=== PATIENT | female | born 1955 | race African-American/Black ===

== ENCOUNTER → 2017-11-21 | Outpatient (CLI) | payer OTHER ==
[~2017-11-21] MED LIST: ADVIL200 MG PO; BIOTIN5000 MCG PO; CALCIUM CITRAT950 MG; CALTRATE 600600 MG PO; CENTRUM SILVER1 CTB PO; DIOVAN/HCT 12.51 TAB PO; IRON325 M1 PO; OMEGA-31 SGL PO; RT ADVAIR 228 DISKUS IH; VENTOLIN0.09 MG IH; VITAMIN C500 MG PO; WOMEN'S DAILY1 TAB PO; ZYRTEC 10MG10 MG PO; [UNRECOGNIZED DRUG - OTHER] PO
== END ==
LOC: COL.PUL 09:25
DX: Z02.71 Encounter for disability determination (principal)

== ENCOUNTER 2017-11-22 06:43 | Day surgery (SDC) | payer MEDICAID ==
[~2017-11-22] VITALS: Ht 160 cm; Wt 62.7 kg
[2017-11-22] VITALS (10 sets, daily range): BP systolic 111–136; BP diastolic 65–88; PULSE 69–95; TEMP 97.5–98.1
[~2017-11-22 06:43] MED LIST changes: -ADVIL200 MG PO; -BIOTIN5000 MCG PO; -CALCIUM CITRAT950 MG; -DIOVAN/HCT 12.51 TAB PO; -OMEGA-31 SGL PO; -RT ADVAIR 228 DISKUS IH; -VENTOLIN0.09 MG IH; -VITAMIN C500 MG PO; -WOMEN'S DAILY1 TAB PO; -ZYRTEC 10MG10 MG PO
[2017-11-22 08:12] LABS: HEMATOCRIT 40.6 % (37.0-47.0); HEMOGLOBIN 13.6 g/dl (12.5-16.0); MEAN CELL VOLUME 88 fl (80.0-100.0); MEAN CORPUSCULAR HEMOGLOBIN 29 pg (27.0-31.0); MEAN CORPUSCULAR HGB CONC 34 g/dl (33.0-37.0); MEAN PLATELET VOLUME 9.3 fl (7.4-10.4); PLATELET COUNT 253 K/mm3 (130-400); RED BLOOD COUNT 4.62 M/mm3 (4.10-5.30); REDCELL DISTRIBUTION WIDTH-CV 13.3 % (11.5-14.5)
[2017-11-22 08:17] LABS: CALCIUM 8.8 mg/dL (8.4-10.2); CREATININE, serum 0.95 mg/dL (0.52-1.25)
[2017-11-22 08:18] LABS: PROTHROMBIN TIME 10.9 SECONDS (9.7-12.8)
[2017-11-22] MEDS ORDERED: RT ADVAIR 228 DISKUS IH (08:20)
[2017-11-22] MEDS ORDERED: ADVIL200 MG PO (08:21)
[2017-11-22] MEDS ORDERED: DIOVAN/HCT 12.51 TAB PO (08:22)
[2017-11-22] MEDS ORDERED: ZYRTEC 10MG10 MG PO (08:23)
[2017-11-22] MEDS ORDERED: VENTOLIN0.09 MG IH ×2 (08:23)
[2017-11-22] MEDS ORDERED: BIOTIN5000 MCG PO (08:25)
[2017-11-22] MEDS ORDERED: CALCIUM CITRAT950 MG (08:25)
[2017-11-22] MEDS ORDERED: OMEGA-31 SGL PO (08:27)
[2017-11-22] MEDS ORDERED: WOMEN'S DAILY1 TAB PO (08:28)
[2017-11-22] MEDS ORDERED: VITAMIN C500 MG PO (08:28)
== END 2017-11-22 15:00 | disposition home or self-care (01) ==
LOC: COL.CAR 06:43
PROVIDERS: Internal Medicine Cardiovascular Disease
DX: I08.1 Rheumatic disorders of both mitral and tricuspid valves (principal); E11.9 Type 2 diabetes mellitus without complications; E78.5 Hyperlipidemia, unspecified; I11.0 Hypertensive heart disease with heart failure; I50.9 Heart failure, unspecified; J44.9 Chronic obstructive pulmonary disease, unspecified
CPT/HCPCS: C1760; C1769; C1894; J1644; J2250; J3010; Q9967

== ENCOUNTER → 2018-01-05 | Outpatient (CLI) | payer MEDICAID ==
[~2018-01-05] MED LIST changes: +ADVIL200 MG PO; +BIOTIN5000 MCG PO; +CALCIUM CITRAT950 MG; +DIOVAN/HCT 12.51 TAB PO; +OMEGA-31 SGL PO; +RT ADVAIR 228 DISKUS IH; +VENTOLIN0.09 MG IH; +VITAMIN C500 MG PO; +WOMEN'S DAILY1 TAB PO; +ZYRTEC 10MG10 MG PO
== END ==
LOC: COL.RAD 11:00
DX: J43.9 Emphysema, unspecified (principal); J47.9 Bronchiectasis, uncomplicated; J98.4 Other disorders of lung; I51.7 Cardiomegaly; I34.0 Nonrheumatic mitral (valve) insufficiency
CPT/HCPCS: Q9967

== ENCOUNTER 2018-03-06 09:11 | Day surgery (SDC) | payer MEDICAID ==
[~2018-03-06] VITALS: Ht 162.6 cm; Wt 69.4 kg
[2018-03-06 09:33] VITALS: BP 143/84; PULSE 87; TEMP 98
[2018-03-06] MEDS ORDERED: MYRBETR50MG PO (09:33)
[2018-03-06] MEDS ORDERED: BREO IH (09:33)
[2018-03-06 11:15] VITALS: BP 114/68; PULSE 82; TEMP 97.7
[2018-03-06 11:30] VITALS: BP 122/75; PULSE 79
[2018-03-06 11:45] VITALS: BP 114/68; PULSE 75
== END 2018-03-06 12:10 | disposition home or self-care (01) ==
LOC: SDCO 09:11
DX: K62.5 Hemorrhage of anus and rectum (principal); Z80.0 Family history of malignant neoplasm of digestive organs; K63.89 Other specified diseases of intestine; Z93.3 Colostomy status; J44.9 Chronic obstructive pulmonary disease, unspecified
CPT/HCPCS: J2250; J3010; J7030

== ENCOUNTER 2020-02-06 09:05 | Inpatient (IN) | payer MEDICAID ==
[2020-02-06] VITALS (11 sets, daily range): BP systolic 88–129; BP diastolic 50–82; PULSE 72–88; TEMP 97.8–98.3
[~2020-02-06] VITALS: Ht 162.6 cm; Wt 53.0 kg
[~2020-02-06 09:05] MED LIST changes: +BREO IH; +MYRBETR50MG PO
[2020-02-06] MEDS ORDERED: ASPIRIN 81M81 MG/TA2 PO (10:23)
[2020-02-06] MEDS ORDERED: PRILOSEC 20MG20 MG PO (10:25)
[2020-02-06] MEDS ORDERED: TYLENOL 500MG500 MG PO (10:28)
--- NOTE | 2020-02-06 10:44 | NUR ---
PAtient arrived to the floor at this time. She is alert, oriented and stable. Vitals look good. Only complaint is pain at rate of 4, increasing with movement, located in her rib cage descibed as pressure. Admission assessment has been completed. IV is in pts right hand, CD&I. Medications were reviewed verbally as patient did not have a list. Assessment unremarkable. Will continue to monitor. Call light is in reach.
[2020-02-06 12:12] LABS: BASO # 0.1 (0.0-0.2); BASO % 0.9 % (0.0-2.0); CALCIUM 10.3 mg/dL (8.4-10.2); CREATININE, serum 1.34 (0.52-1.25); EOS % 0.5 % (0-4.0); GRAN # 3.7 (1.4-6.5); GRAN % 63.1 % (42.2-75.2); HEMATOCRIT 40.9 % (37.0-47.0); HEMOGLOBIN 13.5 g/dl (12.5-16.0); LYMPH # 1.5 (1.2-3.4); LYMPH % 26.1 % (20.0-51.0); MAGNESIUM 2.2 mg/dL (1.6-2.3); MEAN CELL VOLUME 87 fl (80.0-100.0); MEAN CORPUSCULAR HEMOGLOBIN 29 pg (27.0-31.0); MEAN CORPUSCULAR HGB CONC 33 g/dl (33.0-37.0); MEAN PLATELET VOLUME 10.6 fl (7.4-10.4); MONO # 0.5 (0.1-0.6); MONO % 9.2 % (1.7-9.3); PLATELET COUNT 380 K/mm3 (130-400); POTASSIUM 4.6 mmol/L (3.4-5.0); RED BLOOD COUNT 4.69 M/mm3 (4.10-5.30); REDCELL DISTRIBUTION WIDTH-CV 14.6 % (11.5-14.5)
[2020-02-06 12:26] LABS: TROPONIN-I 0.086 ng/mL (0.000-0.035)
[2020-02-06 12:48] LABS: PARTIAL THROMBOPLASTIN TIME 43.9 SECONDS (26.0-37.0)
--- NOTE | 2020-02-06 15:54 | NUR ---
SEE MERGE DOCUMENTATION FOR MEDICATION ADMINISTRATION TIMES AND INTRA/POST PROCEDURE SEDATION ASSESSMENTS. RIGHT HAND BARBEAU TEST POSITIVE.
--- NOTE | 2020-02-06 16:50 | NUR ---
patient got back to room 308 from [facility] at this time, she is alert/oriented, vital signs stable, right radial puncture site is soft and no signs of bleeding or hematoma, comprression band has 15cc air / will begin to deflate around 1830, dneies needs at this time and we [place] [facility] to monitor
--- NOTE | 2020-02-06 18:04 | NUR ---
patient continues to do well, no bleeding or oozing at right radial puncutre site, cap refill is good to finger, vital signs stable, she is tolerating PO intake well
--- NOTE | 2020-02-06 18:53 | NUR ---
removed 4 cc of air from radial band, site started oozing a little and 4cc of air was replaced
--- NOTE | 2020-02-06 20:35 | NUR ---
Patient assessed at this time. Alert and oriented x 4, and able to make needs known. Denies having pain and discomfort at this time. Peripheral IV to right hand, fluids running per orders. Right radial heart cath site-band taken off and bandaid applied. No active bleeding or hematomoa. Arm board on for protection for site overnight. Denies SOB and dyspnea. LS CTA. Respirations even and unlabored. HRR. Telemetry in place: sinus. Capillary refill less than 3 seconds. Non-tenting skin turgor. BSAx4. Abdomen soft and non-tender. No edema. Voices no questions, needs, or concerns at this time. Resting in bed with call light within reach.
[2020-02-07 02:47] VITALS: BP 99/54; PULSE 84; TEMP 98.3
--- NOTE | 2020-02-07 05:20 | NUR ---
Patient has been resting in bed with eyes closed. Denies having pain and discomfort. IV fluids continue per orders. BPs have been low this shift. Call light is within reach.
[2020-02-07 07:13] VITALS: BP 109/65; PULSE 84; TEMP 97.8
[2020-02-07 07:27] LABS: CALCIUM 9.4 mg/dL (8.4-10.2); CREATININE, serum 1.44 (0.52-1.25); POTASSIUM 4.5 mmol/L (3.4-5.0)
--- NOTE | 2020-02-07 08:32 | NUR ---
Assessment complete. Patient sitting up in recliner for breakfast at this time. Echo just completed. Patient requested pain medication, PRN tylenol provided. Radial site looks good, CD&I, bandaid in place. Pt states radial site is minimally sore with movement but assumes it is because of her IV. IV site is CD&I, IVF infusing at this time. No other needs were expressed at this time. Call light is in reach.
--- NOTE | 2020-02-07 10:32 | NUR ---
Initial visit; Patient thanked Pre Press Operator for looking in on her and keeping her in Pre Press Operator's prayers.
[2020-02-07 11:55] VITALS: BP 103/72; PULSE 78; TEMP 97.9
--- NOTE | 2020-02-07 16:07 | NUR ---
SW met with the patient to complete initial intake. The patient lives in [place] with her sister, Monse Campos #[id number]. The patient is independent and denies DME use. The patient's PCP is Dr. Martinez and patient recieves medications from [facility] in . The patient does not have advanced directives in the EMR. She was not interested in DPOA-HC form. The patient's siblings are Asim Brownlee from [facility], Ciaran Hawkins from [place], Montserrat Davis from [place], and Fabienne Torrie from [place]. Monse has all the phone numbers. The patient plans to return home at discharge. There are no additional needs.
[2020-02-07 17:09] VITALS: BP 129/67; PULSE 81; TEMP 98.2
--- NOTE | 2020-02-07 17:21 | NUR ---
Patient had an uneventful day. PRN tylenol provided as needed. Patient remains independent in the room with no issues. She is aware of her POC and understands the need for the newly admnistered medications. Radial site is still CD&I. IV site was switched from left hand to right AC as other infitrated. No issues since moving it. Call light is in reach.
[2020-02-07 20:00] VITALS: BP 109/58; PULSE 74; TEMP 98
--- NOTE | 2020-02-07 20:00 | NUR ---
Patient assessed at this time. Alert and oriented x 4, and able to make needs known. Denies having pain and discomfort at this time. Did have headache earlier, and was given PRN APAP as requested for pain. Peripheral IV to left AC with pain and redness. Taken out and new 22 G INT started to left forearm. Denies having SOB and dyspnea. LS CTA. Respirations even and unlabored. HRR. Tele: sinus. Capillary refill less than 3 seconds. Non-tenting skin turgor. BSAx4. Abdomen soft and non-tender. No edema. Voices no questions, needs, or concerns at this time. Resting in bed with call light within reach.
[2020-02-08] VITALS (7 sets, daily range): BP systolic 102–130; BP diastolic 57–78; PULSE 76–82; TEMP 97.5–98.1
--- NOTE | 2020-02-08 05:47 | NUR ---
Patient has been resting in bed this shift. Received APAP once this shift for headache. No further complaints this shift. Voices no questions, needs, or concerns at this time. Call light is within reach.
[2020-02-08 06:29] LABS: MEAN CELL VOLUME 87 fl (80.0-100.0); MEAN CORPUSCULAR HGB CONC 33 g/dl (33.0-37.0); MEAN PLATELET VOLUME 10.8 fl (7.4-10.4); PLATELET COUNT 339 K/mm3 (130-400); RED BLOOD COUNT 4.01 M/mm3 (4.10-5.30); REDCELL DISTRIBUTION WIDTH-CV 14.4 % (11.5-14.5)
[2020-02-08 06:43] LABS: HEMOGLOBIN 11.5 g/dl (12.5-16.0); MEAN CORPUSCULAR HEMOGLOBIN 29 pg (27.0-31.0)
--- NOTE | 2020-02-08 19:27 | NUR ---
patient complained of fluttering abdomen when receiving report this am. jeremy Wynne nurse called telemetry to confirm rhythm was sinus on tele. patient ambulated around the room, she later said bowel settled after passing flatulence. patient alert and oriented. complained of mild headache, took tylenol for pain. wbc 4.7, Na 132. Patient had an uneventful day. scored zero on ciwa protocol all day. patient ambulate independently in the room.
--- NOTE | 2020-02-08 19:50 | NUR ---
Patient assessed at this time. Alert and oriented x 4, and able to make needs known. Denies having pain and discomfort at this time. Had a headache earlier and was given PRN APAP which was effective. New order for Claritin as requested by patient, and given. Peripheral INT to left forearm is patent, and without redness, warmth, pain, and swelling. Denies having SOB and dypsnea. LS CTA. Respirations even and unlabored. HRR. Telemetry in place: sinus. Capillary refill less than 3 seconds. Non-tenting skin turgor. BSAx4. Abdomen soft, and non-tender. Reported that she did have an increase in amount of stool since this morning's upset stomach, but seems to be doing much better now. Independent with colostomy care. No edema. Voices no questions, needs, or concerns at this time. Resting in bed with call light within reach.
[2020-02-09 04:00] VITALS: BP 122/67; PULSE 92; TEMP 98.2
--- NOTE | 2020-02-09 05:59 | NUR ---
Patient has voiced no questions, needs, or concerns this shift. Stated that her abdomen is no longer feeling bloated this morning, and reports emptying colostomy bag 3 times during the night. Given new colosty bag and wafer as requested for later if needed. Voices no further questions, needs, or concerns at this time. Resting in bed with call light within reach.
[2020-02-09 07:10] LABS: BASO % 0.3 % (0.0-2.0); EOS # 0.1 (0.0-0.7); EOS % 1.1 % (0-4.0); GRAN # 7.5 (1.4-6.5); GRAN % 79.4 % (42.2-75.2); HEMATOCRIT 38.4 % (37.0-47.0); HEMOGLOBIN 12.7 g/dl (12.5-16.0); LYMPH # 1.1 (1.2-3.4); LYMPH % 11.3 % (20.0-51.0); MEAN CELL VOLUME 88 fl (80.0-100.0); MEAN CORPUSCULAR HEMOGLOBIN 29 pg (27.0-31.0); MEAN CORPUSCULAR HGB CONC 33 g/dl (33.0-37.0); MEAN PLATELET VOLUME 11.1 fl (7.4-10.4); MONO # 0.7 (0.1-0.6); MONO % 7.6 % (1.7-9.3); PLATELET COUNT 362 K/mm3 (130-400); RED BLOOD COUNT 4.36 M/mm3 (4.10-5.30); REDCELL DISTRIBUTION WIDTH-CV 14.3 % (11.5-14.5)
[2020-02-09 07:21] VITALS: BP 118/67; PULSE 84; TEMP 98.1
[2020-02-09 07:23] LABS: CALCIUM 9.7 mg/dL (8.4-10.2); CREATININE, serum 1.33 (0.52-1.25); POTASSIUM 4.2 mmol/L (3.4-5.0)
[2020-02-09 08:12] LABS: HIV 1/2 Antibodies Non-Reactive; HIV-1p24 Antigen Non-Reactive
--- NOTE | 2020-02-09 08:56 | NUR ---
MORNING MEDS GIVEN. PT UP AD [place]. SITTING IN RECLINER. DENIES ANY NEEDS. IV FLUSHED
[2020-02-09] MEDS ORDERED: COREG 3.123.125 MG/T PO ×3 (10:55→11:06)
[2020-02-09] MEDS ORDERED: INDOCIN 25MG CA25 MG PO (10:57)
[2020-02-09] MEDS ORDERED: COLCRYS0.6 MG PO (10:59)
[2020-02-09 11:29] VITALS: BP 122/65; PULSE 87; TEMP 98
--- NOTE | 2020-02-09 12:24 | NUR ---
DISCHARGE INSTRUCTIONS REVIEWED. PHARMACY CALLED AND CLARFICIATION FOR COREG 6.25MG BID MADE PER ACTIVE DISCHARGE LIST. ALL QUESTIONS ANSWERED. SISTER WILL CIGAR PACKER AND SHADER PT IN 1 HOUR.
--- NOTE | 2020-02-09 14:26 | NUR ---
PT DISCHARGED @ 1315 AND PICKED UP BY SISTER.
--- NOTE | 2020-02-10 16:08 | NUR ---
Pt went to [facility] in [place] and was denied her Colchicine medication. Their Phone is [phone]. I called [facility] OUTPT medications at [phone]-they will fax a form to our fax to be filled out and returned marked "Urgent". I called Delmy at home and updated her on the process. She voiced understanding.
--- NOTE | 2020-02-10 16:39 | NUR ---
Received fax from [facility]-completed form and Faxed to [phone]. Called Delmy to update her on status of medication.
== END 2020-02-09 13:15 | disposition home or self-care (01) | DRG 280 ==
LOC: MEDICAL 09:05
PROVIDERS: Internal Medicine Pulmonary Disease; Physician Assistant; ADMIT Hospitalist
PROC: 4A023N7 Measurement of Cardiac Sampling and Pressure, Left Heart, Percutaneous Approach (ICD-10-PCS; principal; 2020-02-06)
PROC: B2111ZZ Fluoroscopy of Multiple Coronary Arteries using Low Osmolar Contrast (ICD-10-PCS; 2020-02-06)
DX: I31.9 Disease of pericardium, unspecified (principal); I21.4 Non-ST elevation (NSTEMI) myocardial infarction; J96.01 Acute respiratory failure with hypoxia; N39.0 Urinary tract infection, site not specified; E87.1 Hypo-osmolality and hyponatremia; E87.3 Alkalosis; I50.22 Chronic systolic (congestive) heart failure; I42.9 Cardiomyopathy, unspecified; I13.0 Hypertensive heart and chronic kidney disease with heart failure and stage 1 through stage 4 chronic kidney disease, or unspecified chronic kidney disease; I51.4 Myocarditis, unspecified; N18.31 Chronic kidney disease, stage 3a; J44.9 Chronic obstructive pulmonary disease, unspecified; I27.20 Pulmonary hypertension, unspecified; I44.0 Atrioventricular block, first degree; E78.5 Hyperlipidemia, unspecified; K21.9 Gastro-esophageal reflux disease without esophagitis; Z20.828 Contact with and (suspected) exposure to other viral communicable diseases; Z79.82 Long term (current) use of aspirin; Z79.1 Long term (current) use of non-steroidal anti-inflammatories (NSAID); Z87.891 Personal history of nicotine dependence
CPT/HCPCS: 99222-AI; 99232-AI; 99233-AI; 99239; J0696; J1644; J2250; J3010; Q9967

== ENCOUNTER → 2020-05-06 | Outpatient (CLI) | payer MEDICAID ==
[~2020-05-06] VITALS: Ht 162.7 cm; Wt 64.3 kg
[~2020-05-06] MED LIST changes: +ASPIRIN 81M81 MG/TA2 PO; +CARDIZEM120 MG PO; +CATAPRES 0.1MG0.1 MG PO; +COLCRYS0.6 MG PO; +COREG 3.123.125 MG/T PO; +COREG12.5 MG PO; +INDOCIN 25MG CA25 MG PO; +K-TAB10 PO; +PRILOSEC 20MG20 MG PO; +TYLENOL 500MG500 MG PO
[2020-05-06 09:00] VITALS: BP 136/81; PULSE 67; TEMP 98.5
[2020-05-06 11:04] LABS: INR 1.1 (0.8-3.0); PROTHROMBIN TIME 12.1 SECONDS (9.7-12.8)
[2020-05-06 11:15] VITALS: BP 127/66; PULSE 71
--- NOTE | 2020-05-06 11:15 | NUR ---
REPORT FROM TYRONE CHAKRABORTY AFTER [place], PT SITS UP IN BED, ASWAKE AND ALERT, SIPS ON WATER, NO C/O
[2020-05-06 11:30] VITALS: BP 113/66; PULSE 66
[2020-05-06 11:45] VITALS: BP 118/66; PULSE 66
--- NOTE | 2020-05-06 11:45 | NUR ---
PT UP IN ROOM, GAIT STEADY. NO C/O
[2020-05-06 12:00] VITALS: BP 124/67; PULSE 71
[2020-05-06 12:34] LABS: CREATININE, serum 1.11 (0.52-1.25)
[2020-05-06 12:35] LABS: CALCIUM 9.9 mg/dL (8.4-10.2); POTASSIUM 4.3 mmol/L (3.4-5.0)
--- NOTE | 2020-05-06 12:45 | NUR ---
REVIEWED DISCHARGE INST. WITH PT ON MODERATE SEDATION AND ACTIVITY, LEFT MESSAGE AT OFFICE TO CALL PT ON FOLLOWUP IN 2 WEEKS, TO CALL PT AT HOME. IV D'CD INTACT BY EUNICE CHAKRABORTY. NO CHANGES IN MED LIST AT THIS TIME., PT UP IN ROOM, DRESSED WAITS FOR RIDE AT 1300
[2020-05-06 13:41] LABS: HEMOGLOBIN 10.4 g/dl (12.5-16.0); MEAN CELL VOLUME 85 fl (80.0-100.0); MEAN CORPUSCULAR HEMOGLOBIN 28 pg (27.0-31.0); MEAN CORPUSCULAR HGB CONC 33 g/dl (33.0-37.0); MEAN PLATELET VOLUME 9.7 fl (7.4-10.4); PLATELET COUNT 391 K/mm3 (130-400); RED BLOOD COUNT 3.74 M/mm3 (4.10-5.30); REDCELL DISTRIBUTION WIDTH-CV 14.1 % (11.5-14.5)
[2020-05-06 13:42] LABS: HEMATOCRIT 31.6 % (37.0-47.0)
== END ==
LOC: COL.RAD 08:19
PROVIDERS: Internal Medicine Cardiovascular Disease
DX: I48.91 Unspecified atrial fibrillation (principal); Z95.2 Presence of prosthetic heart valve
CPT/HCPCS: J2704